=== PATIENT | female | born 1955 | race Caucasian/White ===

== ENCOUNTER 2022-04-21 18:27 | Emergency (ER) | payer MEDICARE, OTHER, SELFPAY ==
[2022-04-21] VITALS (9 sets, daily range): BP systolic 183–202; BP diastolic 89–108; PULSE 77–108; RESP 16–37; TEMP 36.7; O2SAT 93–99; BMI 37.5
[2022-04-21 19:13] LABS: Prothrombin Time 11.5 SECONDS (10.1-12.7)
[2022-04-21 19:16] LABS: PTT Partial Thromboplastin Tim 30 SECONDS (26-36)
[2022-04-21 19:19] LABS: Add Manual Diff / Slide Review NO; Albumin 4.5 g/dL (3.5-5.0); Albumin Globulin Ratio 1.5 (1.0-2.8); Alkaline Phosphatase 66 U/L (38-126); Aspartate Aminotransferase 28 IU/L (14-36); BUN Creatinine Ratio 30.2 (6-22); Basophils Absolute Auto 0 /uL (0-100); Basophils Percent Auto 0.8 % (0-2); Bilirubin Total 0.8 mg/dL (0.2-1.3); Blood Urea Nitrogen 19 mg/dL (7-17); Carbon Dioxide 25 mmol/L (22-32); Chloride 106 mmol/L (98-107); Eosinophils Absolute Auto 200 /uL (0-450); Eosinophils Percent Auto 3.4 % (2-4); Estimated Glomerular Filt Rate > 60 mL/min (>60); Globulin 3.1 g/dL (1.7-4.1); HEMOLYSIS < 15 (0-50); Hematocrit 43.1 % (36-46); Hemoglobin 14.7 g/dL (12.0-16.0); Lymphocytes Absolute Auto 1700 /uL (1100-4500); Lymphocytes Percent Auto 32.8 % (25-40); Mean Corpuscular HGB Conc 34.1 % (30-36); Mean Corpuscular Hemoglobin 30.4 PG (26-34); Mean Corpuscular Volume 89.4 fL (80-100); Monocytes Absolute Auto 400 /uL (0-900); Monocytes Percent Auto 8.3 % (3-14); Neutrophils Absolute Auto 2900 /uL (1500-7000); Neutrophils Percent Auto 54.7 % (50-75); Platelet Count 203 X10^3/uL (150-400); Potassium 3.6 mmol/L (3.4-5.1); Red Blood Cell Count 4.83 X10^6/uL (4.0-5.2); Red Cell Distribution Width 13.3 % (11.6-14.8); Sodium 139 mmol/L (137-145); Total Protein 7.6 g/dL (6.3-8.2); White Blood Cell Count 5.3 X10^3/uL (4.5-11.0)
[2022-04-21 19:32] LABS: Alanine Aminotransferase 20 IU/L (<35)
[2022-04-21 19:42] LABS: Calcium 9.4 mg/dL (8.4-10.2); Glucose 123 mg/dL (80-110)
--- NOTE | 2022-04-21 20:34 | ED.GIBLEED ---
HPI - GI Bleed General Chief complaint: GI Bleed Stated complaint: Coughing up blood Time Seen by Provider: 04/21/22 20:34 Source: patient Mode of arrival: Ambulatory History of Present Illness HPI Narrative: 67-year-old female nonsmoker without any significant chronic medical history presents with family in the chief complaint a sudden onset of painless hemoptysis earlier today. She had not been coughing and denies any fever or chills. She denies nausea, vomiting or diarrhea. She denies any chest pain and is not dizzy nor weak or lightheaded. She denies any known cancer or history of blood clot. She is had no recent travel. Related Data Allergies Allergy/AdvReac Type Severity Reaction Status Date / Time aspirin [ASPIRIN] Allergy Unknown Verified 04/21/22 18:41 Review of Systems Review of Systems Narrative: GENERAL: Denies chills, fatigue, malaise, fever, sweats. HEENT: Denies sinus pain, ear pain, sore throat, difficulty swallowing, dizziness. RESPIRATORY: See HPI CARDIOVASCULAR: See HPI GASTROINTESTINAL: Denies nausea, vomiting, abdominal pain, diarrhea, constipation, melena. : Denies dysuria, frequency, incontinence, hematuria, urinary retention. MUSCULOSKELETAL: denies weakness, joint pain, or bony pain SKIN: Denies rash, skin lesions, or other NEUROLOGIC: Denies weakness, headache, numbness, change in speech, confusion, seizures, incoordination. PSYCHIATRIC: No concerning psychosocial issues. 12 point review of systems is negative except for those stated above Patient History Social History Smoking Status: Former smoker Smoking Status: Former smoker alcohol intake frequency: holidays/special occasions only Substance Use Type: does not use Exam Narrative Exam Narrative: GENERAL: [67] year old patient appears stated age. Well-developed patient, in mild distress. HEAD: Atraumatic. Normocephalic. EYES: Pupils equal round and reactive. Extraocular motions intact. No scleral icterus. No injection or drainage. ENT: Nose without bleeding, purulent drainage. Throat without erythema, tonsillar hypertrophy or exudate. Airway patent. NECK: Trachea midline. Non tender CARDIOVASCULAR: Regular rate and rhythm without murmurs, gallops, or rubs. RESPIRATORY: Clear to auscultation. Breath sounds equal bilaterally. No wheezes, rales, or rhonchi. GASTROINTESTINAL: Abdomen soft, non-tender, nondistended. EXTREMITIES: No edema or joint tenderness. BACK: Nontender without deformity or crepitance. No flank tenderness. NEURO: AOx3. SKIN: No rash or erythema of visible areas Initial Vital Signs Initial Vital Signs: Vital Signs Temperature 98.0 F 04/21/22 18:40 Pulse Rate 108 H 04/21/22 18:40 Respiratory Rate 16 04/21/22 18:40 Blood Pressure 202/98 H 04/21/22 18:40 Pulse Oximetry 93 04/21/22 18:40 Oxygen Delivery Method 04/21/22 18:40 Course Orders Ordered: ED Orders 04/21/22 21:06 Chest [XR chest 2V] Stat 04/21/22 21:26 CT angio chest PE protocol Stat Consultations Consultation #1: Discussed with on-call medical oncology (Bal) who states patient would ideally receive a tissue diagnosis before referral to his office, recommends consultation with Radiology to obtain a CT-guided biopsy Consultation #2: discussed with Dr. Arroyo (radiology) states this is inappropriate procedure to be ordered at [facility] as all in-house radiologist have the skill set to perform this Consultation #3: Dr. Astorga consulted as patient is former primary care provider worked in his office. He states that his office would reach out today or early next week to either arrange an in person or on phone consultation to help arrange for the necessary interventions Vital Signs Vital signs: Vital Signs - 8 hr 04/21/22 22:15 04/21/22 22:15 04/21/22 22:30 Pulse Rate 82 97 H Respiratory Rate 21 37 H Blood Pressure 183/89 H Pulse Oximetry 95 95 Oxygen Delivery Method Room Air 04/21/22 23:00 04/21/22 23:30 04/22/22 00:00 Pulse Rate 77 80 74 Respiratory Rate 25 H Blood Pressure Pulse Oximetry 95 96 96 Oxygen Delivery Method 04/22/22 00:11 04/22/22 00:11 Pulse Rate 75 Respiratory Rate Blood Pressure 183/90 H Pulse Oximetry 97 Oxygen Delivery Method MDM - GI Bleed Lab Data Result diagrams: 04/21/22 18:50 04/21/22 18:50 Labs: Lab Results 04/21/22 04/21/22 04/21/22 Range/Units 18:50 18:50 18:50 WBC 5.3 (4.5-11.0) X10^3/uL RBC 4.83 (4.0-5.2) X10^6/uL Hgb 14.7 (12.0-16.0) g/dL Hct 43.1 (36-46) % MCV 89.4 (80-100) fL MCH 30.4 (26-34) PG MCHC 34.1 (30-36) % RDW 13.3 (11.6-14.8) % Plt Count 203 (150-400) X10^3/uL Neut % (Auto) 54.7 (50-75) % Lymph % (Auto) 32.8 (25-40) % [place] % (Auto) 8.3 (3-14) % Eos % (Auto) 3.4 (2-4) % Baso % (Auto) 0.8 (0-2) % Neut # (Auto) 2900 (4218-0631) /uL Lymph # (Auto) 1700 (1875-7003) /uL [place] # (Auto) 400 (0-900) /uL Eos # (Auto) 200 (0-450) /uL Baso # (Auto) 0 (0-100) /uL PT 11.5 (10.1-12.7) SECONDS INR 1.0 (0.9-1.3) APTT 30 (26-36) SECONDS D-Dimer (<500) ng/ml Sodium 139 (137-145) mmol/L Potassium 3.6 (3.4-5.1) mmol/L Chloride 106 (98-107) mmol/L Carbon Dioxide 25 (22-32) mmol/L BUN 19 H (7-17) mg/dL Creatinine 0.63 (0.52-1.04) mg/dL Estimated GFR > 60 (>60) mL/min BUN/Creatinine Ratio 30.2 H (6-22) Glucose 123 H (80-110) mg/dL Calcium 9.4 (8.4-10.2) mg/dL Total Bilirubin 0.8 (0.2-1.3) mg/dL AST 28 (14-36) IU/L ALT 20 (<35) IU/L Alkaline Phosphatase 66 (38-126) U/L Total Creatine Kinase (30-135) U/L CK-MB (CK-2) (<2.37) ng/mL CK-MB (CK-2) Rel Index (1.5-5.0) % Troponin I (0.01-0.034) ng/mL NT-Pro-B Natriuret Pep (<125) pg/mL Total Protein 7.6 (6.3-8.2) g/dL Albumin 4.5 (3.5-5.0) g/dL Globulin 3.1 (1.7-4.1) g/dL Albumin/Globulin Ratio 1.5 (1.0-2.8) Procalcitonin (<0.5) ng/mL 04/21/22 04/21/22 Range/Units 18:50 18:50 WBC (4.5-11.0) X10^3/uL RBC (4.0-5.2) X10^6/uL Hgb (12.0-16.0) g/dL Hct (36-46) % MCV (80-100) fL MCH (26-34) PG MCHC (30-36) % RDW (11.6-14.8) % Plt Count (150-400) X10^3/uL Neut % (Auto) (50-75) % Lymph % (Auto) (25-40) % [place] % (Auto) (3-14) % Eos % (Auto) (2-4) % Baso % (Auto) (0-2) % Neut # (Auto) (3147-9010) /uL Lymph # (Auto) (6839-8810) /uL [place] # (Auto) (0-900) /uL Eos # (Auto) (0-450) /uL Baso # (Auto) (0-100) /uL PT (10.1-12.7) SECONDS INR (0.9-1.3) APTT (26-36) SECONDS D-Dimer 706 H (<500) ng/ml Sodium (137-145) mmol/L Potassium (3.4-5.1) mmol/L Chloride (98-107) mmol/L Carbon Dioxide (22-32) mmol/L BUN (7-17) mg/dL Creatinine (0.52-1.04) mg/dL Estimated GFR (>60) mL/min BUN/Creatinine Ratio (6-22) Glucose (80-110) mg/dL Calcium (8.4-10.2) mg/dL Total Bilirubin (0.2-1.3) mg/dL AST (14-36) IU/L ALT (<35) IU/L Alkaline Phosphatase (38-126) U/L Total Creatine Kinase 137 H (30-135) U/L CK-MB (CK-2) 1.83 (<2.37) ng/mL CK-MB (CK-2) Rel Index 1.3 L (1.5-5.0) % Troponin I < 0.012 (0.01-0.034) ng/mL NT-Pro-B Natriuret Pep 60 (<125) pg/mL Total Protein (6.3-8.2) g/dL Albumin (3.5-5.0) g/dL Globulin (1.7-4.1) g/dL Albumin/Globulin Ratio (1.0-2.8) Procalcitonin 0.10 (<0.5) ng/mL Imaging Data Chest x-ray: Radiologist's Impression: [address] [address] XRay Report Signed Patient: Lizett Penn MR#: [id number] : 1955 Acct:[id number] Age/Sex: 67 / F Date of Service: 04/21/22 Loc: ED Accession Number: [id number] ?? Procedure: XR chest 2V Ordering Provider: Mikael Phelan D.O. PROCEDURE:? XR CHEST 2V ? INDICATIONS:? hemoptysis ? TECHNIQUE:? 2 views of the chest were acquired.? ? COMPARISON:? [facility], CT, CT ANGIO CHEST PE PROTOCOL, 04/21/2022, 21:32. ? FINDINGS:? ? Surgical changes and devices:? None.? ? Lungs and pleura:? There is a nodular opacity in the left suprahilar region measuring up to 2.9 cm. No pleural effusions or pneumothorax.? ? Mediastinum:? Mediastinal contours are normal.? Heart size is normal.? ? Bones and chest wall:? No suspicious bony abnormalities.? Soft tissues appear unremarkable.? ? IMPRESSION:? ? 1. Nodular left suprahilar opacity suspicious for neoplasm.? Recommend correlation with subsequent CT. ? ? Dictated by: Hardy Arroyo M.D. on 04/21/2022 at 22:01 ? ? Approved by: Hardy Arroyo M.D. on 04/21/2022 at 22:02 ? MDM Narrative Medical decision making narrative: Patient presents with a relatively reassuring history and physical exam and though she has hemoptysis there is no evidence of massive hemoptysis, she denies systemic findings such as dizziness, weakness, lightheadedness or shortness of breath. She understands that the imaging findings are consistent with a high likelihood of a cancer diagnosis in the importance of close follow-up. Return precautions have been discussed and questions have been answered to her apparent satisfaction Discharge Plan Departure Patient Disposition: Home Clinical Impression: Cough with hemoptysis, Mass of left lung Instructions: DI for Hemoptysis Activity Restrictions/Additional Instructions: *You have been diagnosed with [hemoptysis and left lung mass that is very concerning for cancer. As we discussed you will need close follow-up to obtain a CT-guided biopsy of this mass to identify the tissue which will help us move forward.] *What to do: *Please continue to take your regular medications as directed. [ ] New medication prescriptions sent to your pharmacy: [ ] [ ] New medication written as a paper prescription [ x] No new medications given * as we discussed I called Dr. Astorga this evening who states his office will help arrange for this. He states that if you do not hear from his office tomorrow that you should call on Monday, the contact information is listed below *Return to Emergency Department if you should have any new, worsening or concerning symptoms, such as [fever greater than 101 F, shaking chills, worsening bleeding, significant shortness of breath, persistent vomiting or other bothersome symptoms] Referrals: Edu Mondragon MD [Primary Care Provider] - Flex Astorga MD [Physician] - Visit Report Forms: Patient Portal/API
--- NOTE | 2022-04-21 20:36 | PC.NURSE ---
Pt reports intermittent cough for a few days. 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 Denies SOB/CP/Dizziness/Nausea. Was in waiting room without episode, walked to room and pt started coughing followed by spitting up bright red blood. Lung sounds clear in lower quadrants, expiratory crackles in upper quadrants. Pt describes sensation as crackle and gurgly feeling in her upper airway. Aaox3/3. Bowel sounds active.
[2022-04-21 20:49] LABS: D Dimer 706 ng/ml (<500)
[2022-04-21 20:51] LABS: Creatine Kinase 137 U/L (30-135)
[2022-04-21 21:04] LABS: NT-proBNP (BNP-Adult 18+) 60 pg/mL (<125); Troponin I < 0.012 ng/mL (0.01-0.034)
[2022-04-21 21:06] LABS: CKMB % Relative Index 1.3 % (1.5-5.0); Creatine Kinase MB 1.83 ng/mL (<2.37)
--- NOTE | 2022-04-21 21:06 | DI.RAD.S_ITS ---
PROCEDURE: XR CHEST 2V INDICATIONS: hemoptysis TECHNIQUE: 2 views of the chest were acquired. COMPARISON: [facility], CT, CT ANGIO CHEST PE PROTOCOL, 04/21/2022, 21:32. FINDINGS: Surgical changes and devices: None. Lungs and pleura: There is a nodular opacity in the left suprahilar region measuring up to 2.9 cm. No pleural effusions or pneumothorax. Mediastinum: Mediastinal contours are normal. Heart size is normal. Bones and chest wall: No suspicious bony abnormalities. Soft tissues appear unremarkable. IMPRESSION: 1. Nodular left suprahilar opacity suspicious for neoplasm. Recommend correlation with subsequent CT. Dictated by: Hardy Arroyo M.D. on 04/21/2022 at 22:01 Approved by: Hardy Arroyo M.D. on 04/21/2022 at 22:02
--- NOTE | 2022-04-21 21:26 | DI.CT.S_ITS ---
PROCEDURE: CT ANGIO CHEST PE PROTOCOL INDICATIONS: hemoptysis, elevated D Dimer TECHNIQUE: After the administration of intravenous contrast, 2 mm thick sections acquired from the pulmonary apices to the posterior costophrenic angles. 3-dimensional maximum intensity projection (MIP) coronal and sagittal reformats were then acquired through the thorax. For radiation dose reduction, the following was used: automated exposure control, adjustment of mA and/or kV according to patient size. COMPARISON: [facility], CR, XR CHEST 2V, 04/21/2022, 20:40. FINDINGS: Image quality: Excellent. Pulmonary arteries: Pulmonary arteries are normal in size, and demonstrate no intraluminal filling defects to suggest central pulmonary embolism. Lower Neck: No lymphadenopathy by size criteria. Thyroid: Visualized thyroid demonstrates no discrete nodules. Axillae: No lymphadenopathy by size criteria. Chest Wall: Unremarkable. Bones: Visualized osseous structures demonstrate no suspicious lesions. Lungs and Airways: There is a lobulated left upper lobe pulmonary nodule measuring up to 2.6 cm on series 5, image 93. There is associated encasement of adjacent bronchovascular structures. Linear areas of atelectasis are demonstrated bilaterally. There are indistinct ground-glass opacities bilaterally suggestive of mild pulmonary edema. No acute consolidation. The trachea and central airways are patent. Pleura: No pneumothorax or pleural effusions. Heart: Heart size is normal. There is a small pericardial effusion. Thoracic Vessels: The aorta and pulmonary arteries are normal in size. Mediastinum and [place]: No lymphadenopathy by size criteria. Esophagus: No wall thickening. There is a small hiatal hernia. Abdomen: Visualized upper abdomen demonstrates a cyst within the right hepatic dome measuring up to 1.9 cm. An additional partially visualized cyst is also demonstrated in segment 6 of the right hepatic lobe. There is an indistinct hypodensity posteriorly in segment 7 measuring up to 0.6 cm which is too small to characterize. The partially visualized kidneys demonstrates a nonobstructing 0.3 cm stone on the left. IMPRESSION: 1. 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 2. No evidence of hilar or mediastinal lymphadenopathy by size criteria. 3. No pleural effusions. 4. Indistinct ground-glass opacities within the lungs suggestive of mild pulmonary edema. 5. Small pericardial effusion. 6. Partially visualized liver demonstrates hepatic cysts as well as an indeterminate small hypodense focus. Recommend follow-up abdominal and pelvic imaging for staging. Findings discussed with Dr. Phelan on 04/21/2022 at 10:42 p.m.. Dictated by: Hardy Arroyo M.D. on 04/21/2022 at 22:34 Approved by: Hardy Arroyo M.D. on 04/21/2022 at 22:43
[2022-04-22] VITALS: PULSE 74; O2SAT 96
[2022-04-22 00:11] VITALS: BP 183/90; PULSE 75; O2SAT 97
== END 2022-04-22 00:17 | disposition home or self-care (01) ==
PROVIDERS: Emergency Provider Emergency Medicine; Family Provider Family Medicine; PCP Family Medicine
DX: R04.2 Hemoptysis (principal); R91.8 Other nonspecific abnormal finding of lung field
CPT/HCPCS: 36415; 71046; 71275; 80053; 82550; 82553; 83880; 84145; 84484; 85025; 85379; 85610; 85730; 93005; 99284; Q9967

== ENCOUNTER → 2022-04-27 11:06 | Outpatient (CLI) | payer MEDICARE, OTHER, SELFPAY ==
--- NOTE | 2022-04-27 11:34 | DI.CT.S_ITS ---
PROCEDURE: CT ABDOMEN PELVIS W CON INDICATIONS: mass Left Upper Lobe TECHNIQUE: After the administration of oral and intravenous contrast, axial sections were acquired from the lung bases to the pubic symphysis. Coronal and sagittal reformats were performed. For radiation dose reduction, the following was used: automated exposure control, adjustment of mA and/or kV according to patient size. COMPARISON:None. FINDINGS: Image quality: Excellent. Lung bases: Lung bases are clear. Heart size is normal. Solid organs: Liver: The liver has no mass or intrahepatic biliary ductal dilatation. 2 hepatic cysts measuring approximately 2 cm are seen in the right lobe of the liver. Biliary: The gallbladder has no gallstones, pericholecystic fluid, gallbladder wall thickening, or surrounding inflammatory change. Pancreas: The pancreas has no mass or ductal dilatation. There is no surrounding inflammation. Spleen: Normal size. There are no masses. Adrenals: No hypertrophy or nodules. Kidneys: No obstructive calculus or hydronephrosis. No solid mass. Both kidneys have simple cysts measuring 2 cm. Peritoneum and bowel: The distal esophagus and stomach are normal. The small bowel has a normal caliber and appearance. The terminal ileum is normal. The large bowel has diverticulosis with no evidence of diverticulitis. The appendix is normal. No free fluid or air. Nodes and vessels: No retroperitoneal or mesenteric adenopathy by size criteria. Aorta and inferior vena cava are normal in size. Miscellaneous: No abdominal wall mass or hernia. PELVIS: Genitourinary: The bladder has no wall thickening or mass. No bladder calcifications. Bones: No suspicious bony lesions. No vertebral body compression fractures. IMPRESSION: No evidence of metastatic disease to the abdomen or pelvis. Dictated by: Anthony Zarco M.D. on 04/27/2022 at 21:22 Approved by: Anthony Zarco M.D. on 04/27/2022 at 21:27
== END ==
PROVIDERS: Family Provider Family Medicine; PCP Internal Medicine; Referring Provider Internal Medicine; Visit Provider Internal Medicine
DX: R04.2 Hemoptysis (principal); R91.8 Other nonspecific abnormal finding of lung field
CPT/HCPCS: 74177; Q9967

== ENCOUNTER 2022-04-29 07:53 | Outpatient (CLI) | payer MEDICARE, OTHER, SELFPAY ==
[2022-04-29] VITALS (13 sets, daily range): BP systolic 125–170; BP diastolic 70–98; PULSE 60–96; RESP 15–24; TEMP 36.2–36.9; O2SAT 96–100; BMI 37.2
--- NOTE | 2022-04-29 | DI.CT.S_ITS ---
PROCEDURE: CT BIOPSY LUNG LT Sedation analgesia for 60 minutes. INDICATIONS: Other nonspecific abnormal finding of lung field TECHNIQUE: The indications, alternatives, benefits, risks, and possible complications of the procedure were communicated to the patient. Informed written consent from the patient was obtained and placed in the chart. Continuous EKG and hemodynamic monitoring was started by trained personnel. The patient was brought to the CT suite and three dimensional map modeler spiral CT imaging was performed with localization grid. The appropriate site for percutaneous access to the biopsy target was marked, was prepped and draped sterilely, and was infused with local anaesthesia. Under CT guidance, a core biopsy trocar and needle set was advanced to the biopsy target, and specimen(s) were obtained. The trocar and needle were then removed, and the patient was sent for post-procedure monitoring. COMPARISON: [facility], CT, CT ANGIO CHEST PE PROTOCOL, 04/21/2022, 21:32. FINDINGS: Biopsy site: Central left upper lobe Needle: 18 gauge biopsy needle with introducer trocar. Number of passes: 5 Medications: 1% lidocaine for local anaesthesia. IV Fentanyl and Versed for conscious sedation for 60 minutes (see nursing record). Complications: None. IMPRESSION: Successful CT-guided biopsy of left upper lobe pulmonary nodule . Dictated by: Osvaldo Hale M.D. on 04/29/2022 at 12:58 Approved by: Osvaldo Hale M.D. on 04/29/2022 at 13:00
--- NOTE | 2022-04-29 | DI.RAD.S_ITS ---
PROCEDURE: XR CHEST 1V INDICATIONS: 4 hr. post procedure image for pneumo follow-up TECHNIQUE: One view of the chest was acquired. COMPARISON: [facility], CR, XR CHEST 1V, 04/29/2022, 13:09. FINDINGS: Surgical changes and devices: None. Lungs and pleura: Lungs are clear. Stable appearance of right upper lobe pulmonary nodule. Very small left apical pneumothorax has increased slightly in size. No pleural effusion. Mediastinum: Mediastinal contours appear normal. Heart size is normal. Bones and chest wall: No suspicious bony lesions. Overlying soft tissues appear unremarkable. IMPRESSION: Slight interval increase in very small left apical pneumothorax. Otherwise, stable radiographic evaluation. Patient is asymptomatic after CT guided biopsy of the left upper lobe nodule. Patient will be discharged to home with instructions to follow-up on Monday (May 02, 2022) for repeat chest radiograph to document stability versus resolution. Patient was also given instructions to return sooner if development of any symptoms of shortness of breath, chest pain, or hemoptysis. Dictated by: Osvaldo Hale M.D. on 04/29/2022 at 15:37 Approved by: Osvaldo Hale M.D. on 04/29/2022 at 15:53
--- NOTE | 2022-04-29 | DI.RAD.S_ITS ---
PROCEDURE: XR CHEST 1V INDICATIONS: POST LUNG BIOPSY TECHNIQUE: One view of the chest was acquired. COMPARISON: [facility], CR, XR CHEST 1V, 04/29/2022, 11:14. FINDINGS: Surgical changes and devices: None. Lungs and pleura: Possible tiny left apical pneumothorax. Decreased conspicuity of post biopsy changes surrounding left upper lobe nodule. Remainder of the lungs are clear. No pleural effusions. Mediastinum: Mediastinal contours appear normal. Heart size is normal. Bones and chest wall: No suspicious bony lesions. Overlying soft tissues appear unremarkable. IMPRESSION: Decreased conspicuity of post biopsy changes surrounding left upper lobe nodule. Possible tiny left apical pneumothorax. Findings were discussed with patient's nurse at 1325 hours. A repeat chest radiograph in 2 hours will be performed to document stability. Dictated by: Osvaldo Hale M.D. on 04/29/2022 at 13:23 Approved by: Osvaldo Hale M.D. on 04/29/2022 at 13:28
--- NOTE | 2022-04-29 | DI.RAD.S_ITS ---
PROCEDURE: XR CHEST 1V INDICATIONS: ONE HOUR POST LUNG BIOPSY TECHNIQUE: One view of the chest was acquired. COMPARISON: [facility], CR, XR CHEST 2V, 04/21/2022, 20:40. FINDINGS: Surgical changes and devices: None. Lungs and pleura: Redemonstration of left upper lobe pulmonary nodule with adjacent faint opacities compatible with post biopsy changes. No pneumothorax visualized. Remainder of the lungs appear clear. Mediastinum: Mediastinal contours appear normal. Heart size is normal. Bones and chest wall: No suspicious bony lesions. Overlying soft tissues appear unremarkable. IMPRESSION: Persistent left upper lung nodular density compatible with previously seen left upper lobe nodule. Associated post biopsy changes. No pneumothorax seen. Dictated by: Osvaldo Hale M.D. on 04/29/2022 at 11:24 Approved by: Osvaldo Hale M.D. on 04/29/2022 at 11:26
--- NOTE | 2022-04-29 09:20 | PATH_ITS ---
[facility] Accession Number: [id number] No. of containers..01 Tissue . 01 Material submitted: . body - LEFT UPPER LOBE MASS . 01 Clinical history: . NEEDLE CORE BIOPSY . 01 Diagnosis: Lung, Left Upper Lobe, CT-Guided Needle Core Biopsy: Lung parenchyma with focal intra-alveolar hemorrhage and minimal interstitial chronic inflammation. Negative for active inflammation, vasculitis, viral cytopathic changes, granulomata, and neoplasia. MRV 05/02/2022 1441 Local . 01 Comment: The findings are nonspecific. The intra-alveolar hemorrhage appears recent, although a rare hemosiderin-laden macrophage is associated. . 01 Electronically signed: . Jessa Mina MD, Pathologist NPI- [id number] . 01 Gross description: . The specimen is received in formalin, labeled with the patient's name and no additional designation, and consists of eight perez to red-brown needle core biopsies ranging in length from 0.1 cm to 1.7 cm and averaging 0.1 cm in diameter. The specimen is submitted entirely in cassettes A1-A2. ([id number]) /FRR 04/30/2022 210 Local . 01 Pathologist provided ICD-10: J98.9 . 01 CPT . 367093 Specimen Comment: A courtesy copy of this report has been sent to [phone] Performed at: 01 [facility] [address] [place] [address], [place], [place] [id number] MD Hardy Gamez MD Phone: [phone]
[2022-04-29 09:49] LABS: Prothrombin Time 11.6 SECONDS (10.1-12.7)
[2022-04-29 09:50] LABS: Platelet Count 187 X10^3/uL (150-400)
[2022-04-29] MEDS: MIDAZOLAM 2 MG/2 ML VIAL IV (10:28)
[2022-04-29] MEDS: fentaNYL 100 MCG/2 ML INJ IV (10:28)
[2022-04-29 10:50] LABS: PTT Partial Thromboplastin Tim 30 SECONDS (26-36)
--- NOTE | 2022-04-29 17:22 | SUR.PHASEII ---
Radiologist spoke with pt prior to d/c pt left when ready and left in stable condition.
== END 2022-04-29 16:00 | disposition home or self-care (01) ==
PROVIDERS: Family Medicine; Family Provider Family Medicine; PCP Internal Medicine; Referring Provider Internal Medicine; Visit Provider Internal Medicine
PROC: BB24ZZZ Computerized Tomography (CT Scan) of Bilateral Lungs (ICD-10-PCS; CPT 32408; principal; 2022-04-29 09:30)
DX: R91.8 Other nonspecific abnormal finding of lung field (principal)
CPT/HCPCS: 32408; 36415; 71045; 85014; 85049; 85610; 85730; J2250; J3010

== ENCOUNTER → 2022-05-02 08:57 | Outpatient (CLI) | payer MEDICARE, OTHER, SELFPAY ==
--- NOTE | 2022-05-02 | DI.RAD.S_ITS ---
PROCEDURE: XR CHEST 2V INDICATIONS: status post lung biopsy TECHNIQUE: 2 views of the chest were acquired. COMPARISON: [facility], , XR CHEST 1V, 04/29/2022, 15:26. [facility], CR, XR CHEST 1V, 04/29/2022, 13:09. FINDINGS: Surgical changes and devices: None. Lungs and pleura: There is a left-sided pneumothorax which is slightly increased in size when compared with the study dated April 29, 2022. Mediastinum: Mediastinal contours are normal. Heart size is normal. Bones and chest wall: No suspicious bony abnormalities. Soft tissues appear unremarkable. IMPRESSION: Slight increase in the size of the left pneumothorax when compared with the prior study. Dictated by: Flora Lopez M.D. on 05/02/2022 at 9:11 Approved by: Flora Lopez M.D. on 05/02/2022 at 9:14
== END ==
PROVIDERS: Family Provider Family Medicine; PCP Internal Medicine; Referring Provider Family Medicine; Visit Provider Family Medicine
DX: J93.9 Pneumothorax, unspecified (principal)
CPT/HCPCS: 71046

== ENCOUNTER → 2022-05-03 13:36 | Outpatient (CLI) | payer MEDICARE, OTHER, SELFPAY ==
--- NOTE | 2022-05-03 13:39 | DI.RAD.S_ITS ---
PROCEDURE: XR CHEST 2V INDICATIONS: pneumothorax TECHNIQUE: 2 views of the chest were acquired. COMPARISON: [facility], CR, XR CHEST 2V, 05/02/2022, 9:06. FINDINGS: Surgical changes and devices: None. Lungs and pleura: Again noted is a small left-sided pneumothorax which appears relatively stable from prior examination. A left suprahilar infiltrate/mass remains stable in appearance from prior examination. No new focal lung infiltrate is identified. No pleural effusion is present. Mediastinum: Heart and mediastinal contours appear within normal limits for low lung volumes. Bones and chest wall: No suspicious bony abnormalities. Soft tissues appear unremarkable. IMPRESSION: 1. Relatively stable appearance of small left pneumothorax. 2. Stable appearance of left suprahilar infiltrate/mass. Dictated by: Neal Russell M.D. on 05/03/2022 at 15:24 Approved by: Neal Russell M.D. on 05/03/2022 at 15:31
== END ==
PROVIDERS: Family Provider Family Medicine; PCP Internal Medicine; Referring Provider Internal Medicine; Visit Provider Internal Medicine
DX: J95.811 Postprocedural pneumothorax (principal); R91.8 Other nonspecific abnormal finding of lung field
CPT/HCPCS: 71046